=== PATIENT | female | born 1970 | race Caucasian/White ===

== ENCOUNTER 2018-06-21 05:54 | Day surgery (SDC) | payer BC ==
[2018-06-16 14:41] LABS: BASOPHILS % (AUTO) 0.1 % (0-1); EOSINOPHILS % (AUTO) 0.1 % (0-6); LYMPHOCYTES # (AUTO) 0.8 X10'3 (1.1-4.8); LYMPHOCYTES % (AUTO) 13.1 % (21-51); MEAN CORPUSCULAR HEMOGLOBIN 30.7 PG (27.0-31.0); MEAN CORPUSCULAR HGB CONC 33.4 % (33.0-36.5); MEAN PLATELET VOLUME 7.7 FL (7.4-10.4); MONOCYTES # (AUTO) 0.5 X10'3 (0-0.9); MONOCYTES % (AUTO) 7.5 % (2-12); NEUTROPHILS % (AUTO) 79.2 % (42-75); PRE OP HEMATOCRIT 37.8 % (35.0-45.0); PRE OP HEMOGLOBIN 12.6 g/dL (12.0-16.0); PRE OP PLATELET COUNT 303 X10'3 (140-440); RED BLOOD COUNT 4.11 X10'6 (4.20-5.60); RED CELL DISTRIBUTION WIDTH 12.9 % (11.5-14.5)
[2018-06-16 14:56] LABS: ALBUMIN 3.7 G/DL (3.4-5.0); ALBUMIN/GLOBULIN RATIO 1.1 (1.1-1.5); ALKALINE PHOSPHATASE 95 IU/L (46-116); BLOOD UREA NITROGEN 5 MG/DL (7-18); BUN/CREATININE RATIO 7.7 (6.6-38.0); CALCIUM 8.7 MG/DL (8.5-10.1); CHLORIDE 103 MMOL/L (99-107); CREATININE 0.65 MG/DL (0.40-0.90); PRE OP ALT 68 U/L (30-65); PRE OP ANION GAP 9 (8-16); PRE OP AST 34 U/L (10-37); PRE OP BILIRUB, TOTAL 0.2 MG/DL (0.0-1.0); PRE OP GLUCOSE 91 MG/DL (70-104); PRE OP POTASSIUM 3.6 MMOL/L (3.4-5.1); PRE OP SODIUM 140 MMOL/L (135-145); TOTAL CARBON DIOXIDE 28.4 MMOL/L (24-32); TOTAL PROTEIN 7.2 G/DL (6.4-8.2); eGFR > 90 ML/MIN
[2018-06-16 14:58] LABS: HEMOGLOBIN A1C 5.2 % (4.5-6.2)
[2018-06-16 15:12] LABS: HCG SERUM QL NEGATIVE
[~2018-06-21] VITALS: Ht 157.5 cm; Wt 103.9 kg
[2018-06-21] VITALS (25 sets, daily range): BP systolic 115–153; BP diastolic 62–92
[~2018-06-21 05:54] MED LIST: ACET1TAB12 PO; ARIP20TA4 PO; ARIP5TAB4 PO; BUPR300T53 PO; CELE200C PO; GABA-532 PO; NITR100C PO; ORPH100T2 PO; PRO100T PO; ROPI4TAB3 PO; TRAM50TA2 PO; ceFOXitin 2 GM ADDvantage bag 100 ML IV ONE; famotidine 20mg tablet PO ONE
[2018-06-21] MEDS ORDERED: LIDOcaine 1% (10mg/ml) 2ml vial ONE ×2 (06:29→06:49)
[2018-06-21] MEDS: ringers solution, lacted 1,000 ML IV SCH ×3 (06:31→20:48)
[2018-06-21] MEDS ORDERED: clindamycin phosphate 40gm vag cream ONE (06:49)
[2018-06-21] MEDS ORDERED: vasoPRESSIN 20 units/ml inj. ONE (06:50)
[2018-06-21] MEDS ORDERED: BUPIVAcaine/PF 2.5mg/ml (0.25%) 10ml vial ONE (06:50)
[2018-06-21] MEDS ORDERED: morphine 10mg/ml inj. ONE (06:50)
[2018-06-21] MEDS ORDERED: LIDOcaine 1% 30ml preserv. free vial ONE (07:33)
[2018-06-21] MEDS ORDERED: sevoflurane 250ml liquid IH ONE (08:18)
[2018-06-21] MEDS ORDERED: fentaNYL /PF 50mcg/ml 5ml ampule ONE (08:20)
[2018-06-21] MEDS ORDERED: midazolam 2 mg/2 ml injection ONE (08:20)
[2018-06-21] MEDS ORDERED: ringers solution, lacted 1,000 ML IV SCH (10:09)
[2018-06-21] MEDS ORDERED: ondansetron/PF 4mg/2ml inj IV PRN ×2 (10:10→10:40)
[2018-06-21] MEDS ORDERED: proCHLORperazine 10 MG/2 ml inj IV PRN (10:10)
[2018-06-21] MEDS ORDERED: meperidine/PF 25mg/ml syringe IV PRN (10:10)
[2018-06-21] MEDS ORDERED: morphine 4 MG/ML inj SYRINge IV PRN ×2 (10:10)
[2018-06-21] MEDS ORDERED: ondansetron/PF 4mg/2ml inj ONE (10:18)
[2018-06-21] MEDS ORDERED: rocuronium 10mg/ml inj IV ONE ×2 (10:18→11:04)
[2018-06-21] MEDS ORDERED: propofol inj 20 ML IV ONE (10:18)
[2018-06-21] MEDS ORDERED: neostigmine methylsulfate 1 MG/ML 10ml vial ONE (10:18)
[2018-06-21] MEDS ORDERED: glycopyrrolate 0.2mg/ml inj ONE (10:18)
[2018-06-21] MEDS ORDERED: dexamethasone sod phosphate 4mg/ml inj. ONE (10:18)
[2018-06-21] MEDS ORDERED: LIDOcaine 2% (20mg/ml) 5ml vial ONE (10:18)
[2018-06-21] MEDS ORDERED: magnesium hydroxide 30ml (MOM) UD suspension PO PRN (10:40)
[2018-06-21] MEDS ORDERED: temazepam 15mg capsule PO PRN (10:40)
[2018-06-21] MEDS ORDERED: CADD PCA waste documentation MC PRN (10:40)
[2018-06-21] MEDS ORDERED: acetaminophen w/codeine (30MG) #3 tablet PO PRN ×2 (10:40)
[2018-06-21] MEDS ORDERED: LORazepam 0.5 MG tablet PO PRN (10:40)
[2018-06-21] MEDS ORDERED: normal saline 500ml IV soln 500 ML IV PRN (10:40)
[2018-06-21] MEDS ORDERED: diphenhydrAMINE 50 mg/ml inj IV PRN (10:40)
[2018-06-21] MEDS ORDERED: naloxone 0.4 mg/ml inj IV PRN (10:40)
[2018-06-21] MEDS ORDERED: meperidine/PF 50mg/ml syringe ONE (10:44)
[2018-06-21] MEDS: meperidine/PF 25mg/ml syringe IV PRN ×5 (11:14→14:37)
[2018-06-21] MEDS: HYDROmorphone/NS 1 mg/ml CADD 50 ML IV SCH ×7 (11:52→23:00)
[2018-06-21] MEDS: simethicone 80mg chew tab PO SCH ×2 (13:00→17:35)
[2018-06-21] MEDS ORDERED: acetaminophen 1,000mg/100ml IV 100 ML IV ONE (13:20)
[2018-06-21] MEDS: ketorolac trometh. 30mg/ml inj. IV PRN (13:32)
[2018-06-21] MEDS ORDERED: aripiprazole 5mg tablet PO SCH (21:45)
[2018-06-21] MEDS ORDERED: gabapentin 300mg capsule PO SCH ×2 (21:45→21:46)
[2018-06-22] VITALS: BP 137/75
[2018-06-22] MEDS: HYDROmorphone/NS 1 mg/ml CADD 50 ML IV SCH ×8 (01:00→15:00)
[2018-06-22] MEDS: traMADol 50MG tablet PO SCH ×3 (02:00→13:56)
[2018-06-22] MEDS: ketorolac trometh. 30mg/ml inj. IV PRN ×3 (02:58→17:16)
[2018-06-22] MEDS: ringers solution, lacted 1,000 ML IV SCH (04:58)
[2018-06-22 05:01] LABS: BASOPHILS % (AUTO) 0.3 % (0-1); EOSINOPHILS # (AUTO) 0.1 X10'3 (0-0.9); EOSINOPHILS % (AUTO) 1.2 % (0-6); HEMATOCRIT 32.1 % (35.0-45.0); HEMOGLOBIN 10.8 g/dl (12.0-16.0); LYMPHOCYTES # (AUTO) 1.5 X10'3 (1.1-4.8); LYMPHOCYTES % (AUTO) 19.3 % (21-51); MEAN CORPUSCULAR HEMOGLOBIN 30.9 PG (27.0-31.0); MEAN CORPUSCULAR HGB CONC 33.6 % (33.0-36.5); MEAN PLATELET VOLUME 7.4 FL (7.4-10.4); MONOCYTES # (AUTO) 0.4 X10'3 (0-0.9); MONOCYTES % (AUTO) 5.3 % (2-12); NEUTROPHILS # (AUTO) 5.7 X10'3 (1.8-7.7); NEUTROPHILS % (AUTO) 73.9 % (42-75); PLATELET COUNT 251 X10'3 (140-440); RED BLOOD COUNT 3.49 X10'6 (4.20-5.60); RED CELL DISTRIBUTION WIDTH 12.3 % (11.5-14.5); WHITE BLOOD COUNT 7.7 X10'3 (4.5-11.0)
[2018-06-22 07:00] VITALS: BP 128/58
[2018-06-22] MEDS: simethicone 80mg chew tab PO SCH ×2 (07:50→12:35)
[2018-06-22] MEDS ORDERED: gabapentin 300mg capsule PO SCH ×2 (08:00)
[2018-06-22] MEDS ORDERED: non-formulary drug (Aripiprazole (Abilify) 1 TAB) PO SCH (08:00)
[2018-06-22] MEDS ORDERED: buPROPion SR 150mg tablet PO SCH (08:00)
[2018-06-22] MEDS ORDERED: modafinil 100mg tablet PO SCH (08:00)
[2018-06-22 11:00] VITALS: BP 121/74
== END 2018-06-22 17:59 | disposition home or self-care (01) ==
LOC: PAS 05:54 → SUR 3N 10:40 → PAS 06-22 17:59
PROVIDERS: ATTEND Specialist
DX: N87.9 Dysplasia of cervix uteri, unspecified (principal); N73.6 Female pelvic peritoneal adhesions (postinfective); N81.11 Cystocele, midline; N81.5 Vaginal enterocele; N81.6 Rectocele; N39.46 Mixed incontinence; M19.90 Unspecified osteoarthritis, unspecified site; J45.998 Other asthma; F41.8 Other specified anxiety disorders; E11.9 Type 2 diabetes mellitus without complications; G43.909 Migraine, unspecified, not intractable, without status migrainosus; E66.9 Obesity, unspecified; F32.89 Other specified depressive episodes; M79.7 Fibromyalgia; K21.9 Gastro-esophageal reflux disease without esophagitis; M47.816 Spondylosis without myelopathy or radiculopathy, lumbar region; G89.29 Other chronic pain; Z98.84 Bariatric surgery status; Z90.49 Acquired absence of other specified parts of digestive tract; Z87.440 Personal history of urinary (tract) infections; Z79.891 Long term (current) use of opiate analgesic; Z79.2 Long term (current) use of antibiotics; Z88.1 Allergy status to other antibiotic agents; Z88.2 Allergy status to sulfonamides; Z88.5 Allergy status to narcotic agent; Z91.018 Allergy to other foods; Z91.030 Bee allergy status; Z68.41 Body mass index [BMI] 40.0-44.9, adult; Z86.69 Personal history of other diseases of the nervous system and sense organs; Z87.820 Personal history of traumatic brain injury; Z98.890 Other specified postprocedural states; Z79.899 Other long term (current) drug therapy; Z80.3 Family history of malignant neoplasm of breast; Z83.3 Family history of diabetes mellitus; Z82.69 Family history of other diseases of the musculoskeletal system and connective tissue
CPT/HCPCS: 36415; 57260; 57283; 57288; 58552; 80053; 82948; 83036; 84703; 85025; 85610; 85730; 86885; 86900; 86901; A6255; C1771; J0131; J0694; J1100; J1170; J1885; J2001; J2175; J2250; J2270; J2405; J2704; J2710; J3010; J3490; J7120; A4315; A4355; A7000; G0378; J7030

== ENCOUNTER 2024-01-06 21:03 | Emergency (ER) | payer BC ==
[~2024-01-06] VITALS: Ht 157.5 cm; Wt 124.8 kg
[~2024-01-06 21:03] MED LIST changes: +ARIP5TAB12 PO; -ARIP5TAB4 PO; -ORPH100T2 PO; +ORPH100T4 PO; -ceFOXitin 2 GM ADDvantage bag 100 ML IV ONE; -famotidine 20mg tablet PO ONE
[2024-01-06 21:12] VITALS: TEMP 98.6
[2024-01-06 21:47] LABS: BILIRUBIN,URINE NEGATIVE (Neg); CLARITY,URINE CLEAR (Clear); COLOR,URINE STRAW (Yellow); GLUCOSE, URINE 100 mg/dl (Neg); KETONES,URINE NEGATIVE (Neg); LEUKOCYTE ESTERASE ,URINE NEGATIVE (Neg); NITRITES, URINE NEGATIVE (Neg); OCCULT BLOOD,URINE NEGATIVE (Neg); PROTEIN,URINE NEGATIVE (Neg); UROBILINOGEN,URINE 0.2 E.U/dL (0.2-1.0)
[2024-01-06 21:48] LABS: UA COLLECTION TYPE CLN CATCH MIDSTREAM
[2024-01-06 23:00] VITALS: BP 134/67; PULSE 83; RESP 16; O2SAT 97
[2024-01-06] MEDS ORDERED: FAMC500T3 PO (23:08)
== END 2024-01-06 23:47 | disposition home or self-care (01) ==
LOC: ER 21:03
DX: B02.9 Zoster without complications (principal); R10.84 Generalized abdominal pain; Z88.1 Allergy status to other antibiotic agents; Z91.030 Bee allergy status; Z88.2 Allergy status to sulfonamides; Z88.8 Allergy status to other drugs, medicaments and biological substances; Z91.018 Allergy to other foods; Z79.899 Other long term (current) drug therapy; Z98.890 Other specified postprocedural states; Z87.442 Personal history of urinary calculi
CPT/HCPCS: 81003; 99283

== ENCOUNTER 2024-05-05 22:00 | Emergency (ER) | payer BC ==
[~2024-05-05] VITALS: Ht 157.5 cm; Wt 99.5 kg
[2024-05-05 22:29] LABS: BASOPHILS % (AUTO) 0.3 % (0-1); EOSINOPHILS # (AUTO) 0.2 X10'3 (0-0.9); HEMATOCRIT 36.4 % (35.0-45.0); HEMOGLOBIN 12.3 g/dl (12.0-16.0); LYMPHOCYTES # (AUTO) 2.1 X10'3 (1.1-4.8); LYMPHOCYTES % (AUTO) 26.8 % (21-51); MEAN CORPUSCULAR HEMOGLOBIN 29.9 PG (27.0-31.0); MEAN CORPUSCULAR HGB CONC 33.8 g/dL (33.0-36.5); MEAN CORPUSCULAR VOLUME 88.6 FL (78-98); MEAN PLATELET VOLUME 7.5 FL (7.4-10.4); MONOCYTES # (AUTO) 0.5 X10'3 (0-0.9); MONOCYTES % (AUTO) 6.2 % (2-12); NEUTROPHILS # (AUTO) 5.2 X10'3 (1.8-7.7); NEUTROPHILS % (AUTO) 64.7 % (42-75); PLATELET COUNT 271 X10'3 (140-440); RED BLOOD COUNT 4.11 X10'6 (4.20-5.60)
[2024-05-05 22:35] LABS: ALANINE AMINOTRANSFERASE 59 U/L (12-78); ALBUMIN 3.5 G/DL (3.4-5.0); ALKALINE PHOSPHATASE 117 IU/L (46-116); ANION GAP 9 (8-16); ASPARTATE AMINO TRANSFERASE 29 U/L (10-37); BILIRUBIN,TOTAL 0.3 MG/DL (0.1-1.0); BLOOD UREA NITROGEN 9 MG/DL (7-18); BUN/CREATININE RATIO 10.1 (10.0-20.0); CALCIUM 8.4 MG/DL (8.5-10.1); CHLORIDE 106 MMOL/L (99-107); CREATININE 0.89 MG/DL (0.40-0.90); GLUCOSE 113 MG/DL (70-104); POTASSIUM 3.8 MMOL/L (3.5-5.1); SODIUM 140 MMOL/L (135-145); TOTAL CARBON DIOXIDE 24.9 MMOL/L (24-32); TOTAL PROTEIN 7.1 G/DL (6.4-8.2); eCRCL 59 ML/MIN; eGFR 67 ML/MIN
[2024-05-05 22:43] LABS: PRO BRAIN NATRIURETIC PEPTIDE < 30 PG/ML (0-125)
[2024-05-06] MEDS: magnesium sulf-water 2g/50mL 50 ML IV ONE (00:50)
[2024-05-06] MEDS: divalproex 250mg tablet, delayed-release PO ONE (01:33)
[2024-05-06] MEDS: dexamethasone sod phosphate 10mg/ml inj IV STA (01:35)
[2024-05-06] MEDS: acetaminophen 1,000mg/100ml IV 100 ML IV ONE (01:35)
[2024-05-06] MEDS: diphenhydrAMINE 50 mg/ml inj IV ONE (01:36)
[2024-05-06] MEDS: normal saline 1000ml 1,000 ML IV ONE (01:36)
[2024-05-06] MEDS: proCHLORperazine 10 MG/2 ml inj IV ONE (01:36)
[2024-05-06 03:35] VITALS: BP 118/74; PULSE 87; RESP 17; TEMP 98.5; O2SAT 96
== END 2024-05-06 03:15 | disposition home or self-care (01) ==
LOC: ER 22:01
DX: G43.009 Migraine without aura, not intractable, without status migrainosus (principal); Z88.0 Allergy status to penicillin; Z88.1 Allergy status to other antibiotic agents; Z88.2 Allergy status to sulfonamides; Z88.5 Allergy status to narcotic agent; Z88.6 Allergy status to analgesic agent; Z88.8 Allergy status to other drugs, medicaments and biological substances; Z91.030 Bee allergy status; Z98.84 Bariatric surgery status; Z79.899 Other long term (current) drug therapy
CPT/HCPCS: 36415; 71045; 80053; 82948; 83880; 84484; 85025; 93005; 96365; 96375; 99285; J0131; J0780; J1100; J1200; J7030